=== PATIENT | female | born 1990 | race Caucasian/White ===

== ENCOUNTER 2019-01-18 10:32 | Emergency (ER) | payer OTHER ==
[~2019-01-18] VITALS: Ht 165.1 cm; Wt 57.6 kg
[2019-01-18] MEDS ORDERED: QVAR REDIHALE10.6 G1 INH (10:51)
[2019-01-18 10:54] LABS: URINE BILIRUBIN NEGATIVE (Negative); URINE BLOOD NEGATIVE (Negative); URINE CLARITY CLEAR; URINE COLOR YELLOW; URINE GLUCOSE-RANDOM* NEGATIVE (Negative); URINE KETONES NEGATIVE (Negative); URINE LEUKOCYTES NEGATIVE (Negative); URINE NITRITE NEGATIVE (Negative); URINE PROTEIN (DIPSTICK) NEGATIVE (Negative); URINE SPECIFIC GRAVITY 1.015 (1.005-1.035); URINE UROBILINOGEN 0.2 E.U./dl (0.2-1.0)
[2019-01-18 12:06] LABS: ABSOLUTE NEUTROPHILS 6.4 thou/uL (1.4-8.2); BASOPHILS 0.4 % (0.0-2.0); EOSINOPHILS 0.4 % (0.0-3.0); HEMATOCRIT 37.3 % (37.0-47.0); HEMOGLOBIN 12.9 gm/dL (12.0-15.0); LYMPHOCYTES 18.9 % (24.0-44.0); MCH 32.7 pg (26.0-34.0); MCHC 34.5 g/dL (28.0-37.0); MCV 94.9 fL (80.0-100.0); MONOCYTES 10.1 % (1.0-8.0); PLATELET COUNT 257 thou/uL (150-400); POLYS 70.2 % (36.0-66.0); RBC 3.94 mil/uL (4.20-5.00); RDW 13.1 % (10.5-14.5); WBC 9.1 thou/uL (4.0-11.0)
[2019-01-18 12:16] LABS: CREATININE 0.6 mg/dL (0.6-1.0); POTASSIUM 3.6 mmol/L (3.5-5.1)
[2019-01-18 12:22] LABS: ALBUMIN 3.6 g/dL (3.4-5.0); TOTAL BILIRUBIN 0.4 mg/dL (<0.1-1.0); TOTAL PROTEIN 7.2 g/dL (6.4-8.2)
[2019-01-18 14:07] VITALS: BP 103/60
== END 2019-01-18 14:12 | disposition home or self-care (01) ==
LOC: ER 10:32
PROVIDERS: Emergency Medicine; Physician Assistant
DX: O26.892 Other specified pregnancy related conditions, second trimester (principal); O99.512 Diseases of the respiratory system complicating pregnancy, second trimester; R10.84 Generalized abdominal pain; J45.909 Unspecified asthma, uncomplicated; Z3A.15 15 weeks gestation of pregnancy; Z88.8 Allergy status to other drugs, medicaments and biological substances; Z88.6 Allergy status to analgesic agent